=== PATIENT | male | born 1985 | race Hispanic/Latino ===

== ENCOUNTER 2016-10-23 22:22 | Emergency (ER) | payer SELFPAY ==
[~2016-10-23 22:22] MED LIST: Sodium Chloride 0.9% 1,000 ML BAG ONE
[2016-10-23] MEDS ORDERED: Lactated Ringer's 1,000 ML ONE (22:40)
[2016-10-23 22:45] LABS: #Basophils 0.1 thou/uL (0.0-0.2); #Lymphocytes 1.8 thou/uL (1.20-3.40); #Monocytes 0.7 thou/uL (0.11-0.59); #Neutrophils 10.8 thou/uL (1.40-6.50); %Basophils 0.9 % (0.0-1.0); %Lymphocytes 13.5 % (21.0-51.0); %Monocytes 5.4 % (0.0-10.0); %Neutrophils 80.2 % (42.0-75.0); Hemoglobin 17.8 g/dL (14.0-18.0); Mean Corpuscular HGB CONC 35.5 g/dL (32.0-36.0); Mean Corpuscular Hemoglobin 30.6 pg (27.0-31.0); Mean Corpuscular Volume 86.3 fl (80.0-94.0); Mean Platelet Volume 7.6 fL (7.4-10.4); Platelet Count 389 thou/uL (130-400); RBC Distribution Width 10.9 % (11.5-14.5); Red Blood Cell (RBC) Count 5.81 mill/uL (4.70-6.10); White Blood Cell (WBC) Count 13.5 thou/uL (4.8-10.8)
[2016-10-23 23:01] LABS: Anion Gap 32 mmol/L (10-20); BUN (Urea Nitrogen) 36 mg/dL (8.9-20.6); Calc. Creatinine Clearance 0 mL/min (70-130); Calcium 11.2 mg/dL (7.8-10.44); Carbon Dioxide 21 mmol/L (22-29); Chloride 87 mmol/L (98-107); Estimated GFR-MDRD 21; Glucose 212 mg/dL (70-105); Magnesium 2.4 mg/dL (1.6-2.6); Potassium 5.6 mmol/L (3.5-5.1); Sodium 134 mmol/L (136-145)
[2016-10-23 23:49] LABS: Anion Gap 19 mmol/L (10-20)
[2016-10-24] LABS: Carbon Dioxide 24 mmol/L (22-29); Chloride 98 mmol/L (98-107); Potassium 5.2 mmol/L (3.5-5.1); Sodium 136 mmol/L (136-145)
[2016-10-24 00:01] LABS: BUN (Urea Nitrogen) 35 mg/dL (8.9-20.6); Calc. Creatinine Clearance 0 mL/min (70-130); Calcium 9.2 mg/dL (7.8-10.44); Estimated GFR-MDRD 28; Glucose 115 mg/dL (70-105)
[2016-10-24 00:04] LABS: Bilirubin Negative (Negative); Blood, Urine Negative (Negative); Clarity Cloudy (Clear); Glucose, Urine (Dipstick) Negative (Negative); Leukocyte Negative (Negative); Nitrite Negative (Negative); Protein, Urine (Dipstick) 30 mg/dL (Neg-Trace); Urobilinogen 0.2 mg/dL (0.2-1.0); pH, Urine 5.5 (5.0-9.0)
[2016-10-24 00:10] LABS: RBC/HPF 0-3 HPF (0-3); WBC/HPF 0-3 HPF (0-3)
[2016-10-24 00:11] LABS: Bacteria/HPF 2+ HPF (None Seen); Crystals/HPF 2+ URIC ACID HPF (Negative); Other Casts/LPF >50 MIXED CASTS LPF (0-3 Hyaline); Squamous Epithelial 0-3 HPF (0-3)
[2016-10-24 05:28] LABS: Anion Gap 15 mmol/L (10-20)
[2016-10-24 05:45] LABS: Carbon Dioxide 23 mmol/L (22-29); Chloride 104 mmol/L (98-107); Potassium 4.2 mmol/L (3.5-5.1); Sodium 138 mmol/L (136-145)
[2016-10-24 05:46] LABS: BUN (Urea Nitrogen) 26 mg/dL (8.9-20.6)
[2016-10-24 05:47] LABS: Calc. Creatinine Clearance 0 mL/min (70-130)
[2016-10-24 05:52] LABS: Estimated GFR-MDRD 61
[2016-10-24 05:53] LABS: Albumin 3.9 g/dL (3.5-5.0); Bilirubin, Total 0.6 mg/dL (0.2-1.2); Calcium 8.4 mg/dL (7.8-10.44); Globulin 2.9 g/dL (2.4-3.5); Glucose 104 mg/dL (70-105); Protein, Total 6.8 g/dL (6.0-8.3)
[2016-10-24 05:54] LABS: ALT (SGPT) 20 U/L (8-55); AST (SGOT) 22 U/L (5-34); Alkaline Phosphatase 54 U/L (40-150); CK (CPK) 338 U/L (30-200)
== END 2016-10-24 06:53 | disposition home or self-care (01) ==
LOC: MADERS 22:22
DX: E86.0 Dehydration (principal)
CPT/HCPCS: 80048; 80053; 81003; 81015; 82550; 83735; 84443; 85025; 93005; 96360; 96361; J7050; J7120

== ENCOUNTER 2018-11-07 09:25 | Emergency (ER) | payer SELFPAY ==
[2018-11-07] MEDS ORDERED: Lidocaine 1% w/Epinephrine 1:100K 20 ML VIAL ONE (10:10)
== END 2018-11-07 10:32 | disposition home or self-care (01) ==
LOC: MADERS 09:25
DX: S61.412A Laceration without foreign body of left hand, initial encounter (principal); F17.210 Nicotine dependence, cigarettes, uncomplicated; W45.8XXA Other foreign body or object entering through skin, initial encounter
CPT/HCPCS: 12002; J2001

== ENCOUNTER 2018-11-16 14:33 | Emergency (ER) | payer SELFPAY | END 2018-11-16 14:55 | disposition home or self-care (01) | LOC: MADERS 14:33 | DX: S61.412D Laceration without foreign body of left hand, subsequent encounter (principal); F17.210 Nicotine dependence, cigarettes, uncomplicated ==